=== PATIENT | female | born 2000 | race Caucasian/White ===

== ENCOUNTER → 2018-05-21 | Day surgery (SDC) | payer OTHER | END | disposition home or self-care (01) | LOC: JRADIR 11:43 | PROVIDERS: ATTEND Orthopaedic Surgery | PROC: BQ2 Imaging, Non-Axial Lower Bones, Computerized Tomography (CT Scan) (ICD-10-PCS; principal; 2018-05-21) | DX: M25.551 Pain in right hip (principal) | CPT/HCPCS: 27093; 27095; 73525-TC-FY; 73700-TC-RT; 73701-TC-RT; 76000-TC-FY; 84703 ==

== ENCOUNTER 2018-07-24 11:59 | Emergency (ER) | payer OTHER ==
[2018-07-24 12:11] VITALS: BP 125/86; PULSE 105; TEMP 101.8; BMI 21.7
--- NOTE | 2018-07-24 12:36 | PDOC ---
History of Present Illness - General Chief Complaint: Cold Symptoms Stated Complaint: CHEST PAIN Time Seen by Provider: 07/24/18 12:17 History Source: Patient Exam Limitations: No Limitations - History of Present Illness Initial Comments: 07/24/18 14:26 Chief complaint: Fever and cough Patient is a 18-year-old female with history of exercise induced asthma states that she's been sick since this past Friday, 4 days with fever, cough, wheezing. Patient went to urgent care was given prednisone and told to stop the prednisone if she had her start taking the Zithromax which she started taking 3 days ago. Patient has been using inhaler. Patient states she's been vomiting the last 2 days, vomited one to 2 times in the last 24 hours. Patient is febrile and wheezing. No acute respiratory distress. GENERAL/CONSTITUTIONAL: +fever, weakness. No: dizziness HEAD, EYES, EARS, NOSE AND THROAT: No change in vision. No ear pain or discharge. No sore throat. CARDIOVASCULAR: No chest pain RESPIRATORY: No shortness of breath, +cough GASTROINTESTINAL: No pain, nausea, vomiting, diarrhea or constipation GENITOURINARY: No dysuria MUSCULOSKELETAL: No neck or back pain SKIN: No rash NEUROLOGIC: No headache, vertigo, loss of consciousness, or loss of sensation. GENERAL: The patient is awake, alert, and fully oriented, in no acute distress. HEAD: Normal with no signs of trauma. EYES: Pupils equal, round and reactive to light, sclera anicteric, conjunctiva clear. ENT: pharynx: no erythema, no exudate, uvula midline NECK: supple CHEST: Wheezing bilaterally, nontender, rr ABD: soft, nontender EXTREMITIES: Normal range of motion, no edema. NEUROLOGICAL: Normal speech, normal gait. SKIN: Warm, Dry Past History - Past Medical History Allergies/Adverse Reactions: Allergies Allergy/AdvReac Type Severity Reaction Status Date / Time No Known Allergies Allergy Verified 07/24/18 12:11 Home Medications: Ambulatory Orders Prednisone [Deltasone] 40 mg PO DAILY #8 tablet 07/24/18 Asthma: Yes (sports induced only) COPD: No - Suicide/Smoking/Psychosocial Hx Smoking History: Never smoked Have you smoked in the past 12 months: No Information on smoking cessation initiated: No Hx Alcohol Use: Yes (occasional) Drug/Substance Use Hx: Yes (marijuana) Hx Substance Use Treatment: No *Physical Exam - Vital Signs Last Vital Signs Temp Pulse Resp BP Pulse Ox 101.8 F H 105 H 18 125/86 100 07/24/18 12:08 07/24/18 12:08 07/24/18 12:08 07/24/18 12:08 07/24/18 12:08 ED Treatment Course - LABORATORY CBC & Chemistry Diagram: 07/24/18 12:50 07/24/18 12:50 Medical Decision Making - Medical Decision Making 18-year-old female with exercise-induced asthma with fever and cough since Friday, seen at urgent care, had taken a few days of prednisone, has taken 3 days of azithromycin. Patient is still running fever of 101, and has had some vomiting over the last 24-48 hours. No diarrhea. Patient is wheezing. Patient will get labs, hydration, flu screening, strep screening, chest x-ray, DuoNeb treatment and we started on steroids. pt is not on any other medications. 07/24/18 14:31 CBC is normal, patient is not , UA is negative, chest x-ray is negative , flu and strep are negative patient is receiving second liter of fluid, she got Zofran after vomiting. She watched the IV being inserted although being told not to. Patient will get do a nap and Solu-Medrol and be reassessed. 07/24/18 15:21 Patient is feeling better, no wheezing, temperature is 98.8. Discussed issues, findings, results, applicable medications and treatments and follow-up. All these were understood and all questions were answered *DC/Admit/Observation/Transfer Diagnosis at time of Disposition: Wheezing Fever Qualifiers: Fever type: unspecified Qualified Code(s): R50.9 - Fever, unspecified Upper respiratory infection Qualifiers: URI type: unspecified URI Qualified Code(s): J06.9 - Acute upper respiratory infection, unspecified - Discharge Dispostion Disposition: HOME Condition at time of disposition: Stable - Prescriptions Prescriptions: Prednisone [Deltasone] 40 mg PO DAILY #8 tablet - Referrals - Patient Instructions Printed Discharge Instructions: DI for Viral Upper Respiratory Infection -- Adult, Asthma -- Adult Additional Instructions: Drink 2-3 L of water daily Take Tylenol 650 mg every 4 hours or Motrin 600 mg every 6 hours for fever and pain Use albuterol inhaler, 2 puffs every 4 hours as needed for wheezing. Take prednisone 40 mg once daily until finished. Return to the ER if fever, shortness of breath or getting sicker. Otherwise follow-up with your doctor in one to 2 days Return to the nearest ER if short of breath, unable to swallow or feeling sicker Followup with your doctor in one to 2 days - Post Discharge Activity
[2018-07-24] MEDS ORDERED: SODIUM CHLORIDE 1,000 ML IV STA ×2 (12:39→13:24)
[2018-07-24] MEDS ORDERED: IBUPROFEN 600 MG TABLET (FP) PO ONE ×2 (12:40→12:46)
[2018-07-24] MEDS ORDERED: ONDANSETRON 4 MG/2 ML VIAL IVPUSH ONE (12:45)
[2018-07-24 13:06] LABS: BASO % 0.3 % (0-2.0); EOS % 0.4 % (0-4.5); HEMATOCRIT 41.4 % (32.4-45.2); HEMOGLOBIN 14.3 GM/dL (10.7-15.3); LYMPH % 11.2 % (8-40); MCH 32.6 pg (25.7-33.7); MCHC 34.4 g/dl (32.0-36.0); MEAN CELL VOLUME 94.8 fl (80-96); MEAN PLT VOLUME 9.2 fl (7.5-11.1); MONO % 11.5 % (3.8-10.2); NEUT % 76.6 % (42.8-82.8); PLATELET COUNT 146 K/MM3 (134-434); RBC 4.37 M/mm3 (3.60-5.2); RDW 12.8 % (11.6-15.6); WHITE BLOOD COUNT 5.5 K/mm3 (4.0-10.0)
[2018-07-24 13:09] LABS: PH,URINE 6.5 (5.0-8.0); URINE APPEARANCE CLEAR; URINE BILIRUBIN NEGATIVE (NEGATIVE); URINE COLOR YELLOW; URINE GLUCOSE (UA) NEGATIVE (NEGATIVE); URINE KETONE NEGATIVE (NEGATIVE); URINE LEUK ESTERASE NEGATIVE (NEGATIVE); URINE NITRITE NEGATIVE (NEGATIVE); URINE PROTEIN NEGATIVE (NEGATIVE)
[2018-07-24 13:40] LABS: ALBUMIN 4.2 g/dl (3.4-5.0); ALK PHOS 65 U/L (45-117); ANION GAP 6 MMOL/L (8-16); BILIRUBIN,TOTAL 0.6 mg/dL (0.2-1); BLOOD UREA NITROGEN 12 mg/dL (7-18); CALCIUM 8.8 mg/dL (8.5-10.1); CHLORIDE 105 mmol/L (98-107); CO2 27 mmol/L (21-32); CREATININE 0.8 mg/dL (0.55-1.3); GLUCOSE,RANDOM 80 mg/dL (74-106); POTASSIUM 3.7 mmol/L (3.5-5.1); SGOT/AST 14 U/L (15-37); SGPT/ALT 20 U/L (13-61); SODIUM 137 mmol/L (136-145); TOT PROT 7.1 g/dl (6.4-8.2)
[2018-07-24] MEDS ORDERED: ALBUTEROL SO4 2.5/IPRATROPIUM 0.5 INH SOL 3 ML VIAL.NEB. NEB ONE ×2 (14:04→14:12)
[2018-07-24] MEDS ORDERED: methylPREDNISolone NA SUCC 125 MG/2 ML VIAL IVPUSH ONE (14:05)
[2018-07-24] MEDS ORDERED: methylPREDNISolone NA SUCC 125 MG/2 ML VIAL ONE (14:11)
== END 2018-07-24 15:42 | disposition home or self-care (01) ==
LOC: JERFT 11:59
PROC: 3E0F7GC Introduction of Other Therapeutic Substance into Respiratory Tract, Via Natural or Artificial Opening (ICD-10-PCS; principal; 2018-07-24)
PROC: 3E033GC Introduction of Other Therapeutic Substance into Peripheral Vein, Percutaneous Approach (ICD-10-PCS; 2018-07-24)
PROC: 3E0337Z Introduction of Electrolytic and Water Balance Substance into Peripheral Vein, Percutaneous Approach (ICD-10-PCS; 2018-07-24)
DX: J45.990 Exercise induced bronchospasm (principal)
CPT/HCPCS: 36415; 71046-TC-FY; 80053; 81003; 84703; 85025; 87070; 87804; 87880; 99281-25; J7030

== ENCOUNTER 2018-07-26 15:20 | Emergency (ER) | payer OTHER ==
[2018-07-26 15:34] VITALS: BP 131/82; TEMP 101.2; BMI 21.7
[2018-07-26] MEDS ORDERED: ACETAMINOPHEN 500 MG TABLET (FP) PO ONE (15:37)
[2018-07-26] MEDS ORDERED: ACETAMINOPHEN 500 MG TABLET (FP) ONE (15:40)
[2018-07-26] MEDS ORDERED: ONDANSETRON *ODT* 4 MG TABLET SL ONE (15:42)
[2018-07-26] MEDS ORDERED: ONDANSETRON *ODT* 4 MG TABLET ONE (15:44)
--- NOTE | 2018-07-26 16:04 | PDOC ---
History of Present Illness - General Chief Complaint: Sore Throat Stated Complaint: FEVER / VOMITING Time Seen by Provider: 07/26/18 15:35 - History of Present Illness Initial Comments: 07/26/18 16:01 18-year-old female without comorbidities treated with Zithromax and steroids as well as an albuterol pump for cough last week presents for reevaluation of continuing cough and one episode of vomiting this morning. Past History - Past Medical History Allergies/Adverse Reactions: Allergies Allergy/AdvReac Type Severity Reaction Status Date / Time No Known Allergies Allergy Verified 07/26/18 15:33 Home Medications: Ambulatory Orders Prednisone [Deltasone] 40 mg PO DAILY #8 tablet 07/24/18 Asthma: Yes (sports induced only) COPD: No - Suicide/Smoking/Psychosocial Hx Smoking History: Never smoked Have you smoked in the past 12 months: No Hx Alcohol Use: Yes (occasional) Drug/Substance Use Hx: Yes (marijuana) Hx Substance Use Treatment: No Review of Systems - Review of Systems Constitutional: Yes: Fever Respiratory: Yes: Cough ABD/GI: Yes: Vomiting *Physical Exam - Vital Signs Last Vital Signs Temp Pulse Resp BP Pulse Ox 101.2 F H 112 H 20 131/82 99 07/26/18 15:32 07/26/18 15:32 07/26/18 15:32 07/26/18 15:32 07/26/18 15:32 - Physical Exam Comments: 07/26/18 16:03 HEAD: NC/AT EYES: Conjuntiva clear Ears: Canals and TM's normal NOSE: No d/c THROAT: Moist mucous membrances, oral pharanx erythemic without exudate, uvula midline NECK: Supple without adenopathy CARDIAC: S1 S2 LUNGS: CTA Full and Equal breath sounds ABDOMEN: Soft NT ND MS: Full ROM in all joints without edema NEUROLOGIC: No gross sensory or motor deficits, NVID SKIN: Normal color and temperature no lesions or rashes ED Treatment Course - ADDITIONAL ORDERS Additional order review: Laboratory Results 07/26/18 15:43 Group A Strep Rapid Negative - Medications Given in the ED: ED Medications Discontinued Medications Generic Name Dose Route Start Last Admin Trade Name Freq PRN Reason Stop Dose Admin Acetaminophen 1,000 mg 07/26/18 15:37 07/26/18 15:42 Tylenol - PO 07/26/18 15:38 1,000 mg ONCE ONE Administration Ondansetron HCl 4 mg 07/26/18 15:42 07/26/18 15:46 Zofran Odt - SL 07/26/18 15:43 4 mg ONCE ONE Administration Medical Decision Making - Medical Decision Making 07/26/18 16:03 Ongoing cough, patient was treated with Zithromax and is on prednisone at this point vomiting was posttussive this morning. Rapid strep is negative most likely a viral syndrome I will have her follow-up with PCP *DC/Admit/Observation/Transfer Diagnosis at time of Disposition: Upper respiratory infection - Discharge Dispostion Disposition: HOME Condition at time of disposition: Stable Decision to Admit order: No - Referrals Referrals: Elia Melendez MD [Primary Care Provider] - - Patient Instructions Printed Discharge Instructions: DI for Viral Upper Respiratory Infection -- Adult Additional Instructions: Return to the emergency room for worsening symptoms. Please follow-up with your primary care physician tomorrow for further evaluation and treatment options. Follow-up without fail. Tylenol and Motrin as directed for fever. - Post Discharge Activity
[2018-07-26 16:19] VITALS: PULSE 98
== END 2018-07-26 16:17 | disposition home or self-care (01) ==
LOC: JERFT 15:20
DX: J06.9 Acute upper respiratory infection, unspecified (principal); B97.89 Other viral agents as the cause of diseases classified elsewhere
CPT/HCPCS: 87070; 87880; 99281-25; Q0162